=== PATIENT | female | born 1950 | race Caucasian/White ===

== ENCOUNTER 2022-06-21 09:02 | Outpatient (CLI) | payer MEDICARE, SELFPAY ==
[2022-06-21 10:06] LABS: Anion Gap 17 mmol/L (8-16); Blood Urea Nitrogen 29 mg/dL (7-17); Calcium 10.2 mg/dL (8.4-10.2); Carbon Dioxide 29 mmol/L (22-30); Chloride 95 mmol/L (98-107); Estimated Glomerular Filt Rate 37; Glucose 145 mg/dL (65-110); Partial Thromboplastin Time 25.3 SECONDS (22.3-36.8); Prothrombin Time 12.3 Seconds (11.1-14.7); Sodium 141 mmol/L (137-145)
== END 2022-06-21 09:03 | disposition home or self-care (01) ==
PROVIDERS: Anesthesiology; Visit Provider Urology
DX: Z01.812 Encounter for preprocedural laboratory examination (principal); N39.3 Stress incontinence (female) (male); E11.9 Type 2 diabetes mellitus without complications; N28.9 Disorder of kidney and ureter, unspecified; Z51.81 Encounter for therapeutic drug level monitoring; Z79.899 Other long term (current) drug therapy
CPT/HCPCS: 36415; 80048; 85610; 85730; 87086

== ENCOUNTER 2022-06-24 01:44 | Day surgery (SDC) | payer MEDICARE, SELFPAY ==
[2022-06-10 08:25] VITALS: BMI 37.5
--- NOTE | 2022-06-10 08:50 | PC.NURSE ---
PRE-OP INSTRUCTIONS, PLEASE READ CAREFULLY Report to the Outpatient Waiting Room, entrance under the green pavilion located off [facility], at time _0700_ on date _06/24/22_. OR Time: _0900_. - You and your visitor will be asked to self-screen and do not enter if you have any COVID symptoms. - Only one visitor and NO children visitors are allowed at this time. - The patient visitor is requested to leave or wait in car when not with patient due to restrictions. - A mask is required within the hospital. Patients may have clear liquids (water, carbonated beverages, clear teas, apple juice) until 3 hours prior to surgery (0600 AM) with a maximum of 20 ounces. - No food from midnight until time of surgery Take the following medications with a SIP of water the morning of surgery: _VENLAFAXINE, INHALER IF NEEDED_ Medications to discontinue per DR. GIMENEZ - _ASPIRIN 7 DAYS PRIOR TO SURGERY, Date to take last dose 06/16/22_ Medications to discontinue per ANESTHESIA - _OMEGA 3, VITAMIN D3, PROBIOTIC 3 DAYS PRIOR TO SURGERY, Date to take last dose 06/20/22_ Please no make-up, nail german, hairspray, perfume, deodorant, or body powder the day of surgery. No jewelry (including any body piercings) or valuables the day of surgery, leave them at home. Please take a shower or bath the night before, or the morning of, surgery with an antibacterial soap. Wear comfortable, loose fitting clothing. - Jewelry must be removed prior to entering the operating room. Rings and piercings that are not removed may be cut off. - The hospital will not accept responsibility for valuables. - Please leave all valuables, including medications, at home the day of surgery. If you are going home after surgery, a licensed delivery motorcycle driver must drive you home. - NO public transportation without another adult. - We recommend that an adult stay with you for 24 hours following discharge. - We also recommend that you do not drive, make important decision, drink alcoholic beverages, or take any drugs that were not prescribed by your health care provider for at least 24 hours after your discharge time. Follow any additional instructions given to you from your surgeon. If you or anyone in your household have experienced Covid symptoms in the past week, please notify your surgeon or the nurse liaison at the phone number below for possible testing. Telephone instructions given to ___PT and asked if any additional questions and then verbalized understanding. Patient advised to call surgeon office or pre surgery nurse liaison [phone] if any additional questions.
--- NOTE | 2022-06-18 17:23 | PM.IMHP ---
H&P: HPI History of Present Illness Date/Time: 06/18/22 17:23 Chief Complaint: TOOTIE Narrative: 71 yo with TOOTIE on urod Review of Systems Review of Systems: All systems reviewed & are unremarkable except as noted in HPI and below [facility] Social History Social History Smoking status: Never smoker Second hand tobacco smoke exposure: No Alcohol intake: current Alcohol use details: RARELY - MAYBE 6/YR Substance use: never Additional living arrangements comments: LIVES WITH SPOUSE Spiritual care concerns: No Meds Home Medications and Allergies Home Medications Medication Instructions Recorded Confirmed Type Probiotic 1 cap QAM 06/10/22 06/10/22 History albuterol 90 mcg/actuation aerosol 90 mcg inhalation PRN PRN Wheezing 06/10/22 06/10/22 History inhaler aspirin 81 mg tablet,delayed 81 mg PO HS 06/10/22 06/10/22 History release cetirizine 10 mg capsule (Zyrtec) 10 mg PO QAM PRN Congestion 06/10/22 06/10/22 History cholecalciferol (vitamin D3) 50 100 mcg PO DAILY 06/10/22 06/10/22 History mcg (2,000 unit) tablet dulaglutide 0.75 mg/0.5 mL 0.75 mg subcut WEEKLY 06/10/22 06/10/22 History subcutaneous pen injector (Trulicity) fenofibrate nanocrystallized 48 mg 48 mg PO QAM 06/10/22 06/10/22 History tablet insulin detemir U-100 100 unit/mL 36 unit subcut BID 06/10/22 06/10/22 History (3 mL) subcutaneous pen (Levemir FlexTouch U-100 Insulin) insulin lispro 100 unit/mL See Rx Instructions .Route .COMPLEX 06/10/22 06/10/22 History subcutaneous pen (Humalog KwikPen (U-100) Insulin) losartan 50 mg-hydrochlorothiazide 1 tablet QAM 06/10/22 06/10/22 History 12.5 mg tablet omega-3 fatty acids 4 cap PO HS 06/10/22 06/10/22 History rosuvastatin 10 mg tablet 10 mg HS 06/10/22 06/10/22 History tiotropium bromide 1.25 2 puff inhalation PRN PRN Wheezing 06/10/22 06/10/22 History mcg/actuation mist for inhalation (Spiriva Respimat) venlafaxine 150 mg 150 mg PO QAM 06/10/22 06/10/22 History capsule,extended release 24 hr Allergies Allergy/AdvReac Type Severity Reaction Status Date / Time tetracycline AdvReac Unknown-PT Verified 06/10/22 08:10 UNABLE TO RECALL CONTRAST MEDIA AdvReac Rash Uncoded 06/10/22 08:10 Exam Narrative: NAD normal breathing + urethral mobility Assessment and Plan Assessment and plan (1) TOOTIE (stress urinary incontinence, female): Code(s): N39.3 - Stress incontinence (female) (male) Status: Acute Assessment and Plan: urethral sling
--- NOTE | 2022-06-24 07:13 | WPDHPUPDATE1 ---
History and Physical Update Update Date/Time: 06/24/22 07:13 History and Physical has been reviewed, including an updated exam of the patient. There are NO changes in the patient's condition. Risks, benefits, and alternatives have been discussed and questions answered. Patient agrees to proceed with procedure.
[2022-06-24] MEDS: LACTATED RINGERS 1,000 ML 30 ML IV CONT (07:53)
[2022-06-24 07:58] LABS: Glucose Point of Care 180 mg/dl (65-105)
[2022-06-24 08:08] VITALS: BP 135/70; PULSE 77; RESP 18; TEMP 36.1; O2SAT 99
--- NOTE | 2022-06-24 08:24 | WPDANESEPPF ---
Anes - Initial Pre Proc Eval Procedure: Operation Date: 06/24/22 09:00 Proposed Procedures p Urethral Sling - Matthew Burden MD Date/Time: 06/24/22 08:24 Surgeon: Matthew Burden MD Pre Op Diagnosis: stress incontinence Patient Data Age: 71 Gender: F Height: 1.57 m Weight: 96.2 kg Last Vital Signs Temp 36.1 C L 06/24/22 08:08 Pulse 77 06/24/22 08:08 Resp 18 06/24/22 08:08 BP 135/70 06/24/22 08:08 Pulse Ox 99 06/24/22 08:08 O2 Del Method Room Air 06/24/22 08:08 Allergies Allergy/AdvReac Type Severity Reaction Status Date / Time Iodinated Contrast Media Allergy Unknown Rash Verified 06/24/22 08:26 betamethasone Allergy Palpitation Verified 06/24/22 08:07 s vasopressin Allergy Other Verified 06/24/22 08:07 tetracycline AdvReac Unknown-PT Verified 06/24/22 08:07 UNABLE TO RECALL BETA BLOCKERS Allergy Other Uncoded 06/24/22 08:07 Home Medications Medication Instructions Recorded Confirmed Type Probiotic 1 cap QAM 06/10/22 06/10/22 History albuterol 90 mcg/actuation aerosol 90 mcg inhalation PRN PRN Wheezing 06/10/22 06/10/22 History inhaler aspirin 81 mg tablet,delayed 81 mg PO HS 06/10/22 06/10/22 History release cetirizine 10 mg capsule (Zyrtec) 10 mg PO QAM PRN Congestion 06/10/22 06/10/22 History cholecalciferol (vitamin D3) 50 100 mcg PO DAILY 06/10/22 06/10/22 History mcg (2,000 unit) tablet dulaglutide 0.75 mg/0.5 mL 0.75 mg subcut WEEKLY 06/10/22 06/10/22 History subcutaneous pen injector (Trulicity) fenofibrate nanocrystallized 48 mg 48 mg PO QAM 06/10/22 06/10/22 History tablet insulin detemir U-100 100 unit/mL 36 unit subcut BID 06/10/22 06/10/22 History (3 mL) subcutaneous pen (Levemir FlexTouch U-100 Insulin) insulin lispro 100 unit/mL See Rx Instructions .Route .COMPLEX 06/10/22 06/10/22 History subcutaneous pen (Humalog KwikPen (U-100) Insulin) losartan 50 mg-hydrochlorothiazide 1 tablet QAM 06/10/22 06/10/22 History 12.5 mg tablet omega-3 fatty acids 4 cap PO HS 06/10/22 06/10/22 History rosuvastatin 10 mg tablet 10 mg HS 06/10/22 06/10/22 History venlafaxine 150 mg 150 mg PO QAM 06/10/22 06/10/22 History capsule,extended release 24 hr amoxicillin 875 mg-potassium 1 tablet PO BID 06/21/22 06/21/22 History clavulanate 125 mg tablet fluticasone fur. 200 mcg-umeclid 1 inh inhalation DAILY 06/21/22 06/21/22 History 62.5 mcg-vilant 25 mcg inhalat.powder (Trelegy Ellipta) Laboratory Tests 06/24/22 07:54 POC Capillary Glucose 180 mg/dl H mg/dl (65-105) Patient hx anesthesia problems: none Family hx anesthesia problems: none Results Review: All pre-operative results and documents have been reviewed as part of the pre-operative evaluation. [facility] Past Medical History Medical History Asthma Obesity JEFF (obstructive sleep apnea) Social History Social History Smoking status: Never smoker Second hand tobacco smoke exposure: No Alcohol intake: current Alcohol use details: RARELY - MAYBE 6/YR Substance use: never Living arrangements: with family Additional living arrangements comments: LIVES WITH SPOUSE Spiritual care concerns: No Anes - Eval Final PreProcedure Day of Procedure 06/24/22 08:24 Patient weight: obese Heart: regular rate and rhythm Lungs: clear to auscultation Airway: Mallampati scale class II Neurological: alert and oriented ASA classification: III Emergent: no Anesthetic plan: proceed Anesthesia type and monitoring: general GIVS and standard monitoring Results Review: All pre-operative results and documents have been reviewed as part of the pre-operative evaluation. Informed Consent: The patient's anesthetic plan and its attendant risks and benefits were discussed with the patient/family/POA. Questions were solicited a
[2022-06-24] MEDS: ceFAZolin 2 GM/D5W 50 ML 2 GM/50 ML BAG IVPB (09:09)
[2022-06-24] MEDS: BUPIVACAINE/EPINEPHRINE 0.25% 50 ML VIAL INFILTRATE (09:37)
[2022-06-24 09:45] VITALS: BP 98/54; PULSE 66; RESP 14; O2SAT 95
--- NOTE | 2022-06-24 09:51 | W.PM.PROC2 ---
Procedure Note - Detailed Date of Procedure 06/24/22 Pre-op Diagnosis stress incontinence Post-op Diagnosis Same Procedure Performed mid urethral sling cystoscopy Surgeon Matthew Burden MD Indications This is a female with confirm stress urinary incontinence. She desires surgical correction. She understands the risks of bleeding, infection, injury to the urinary tract, vaginal mesh extrusion, urinary tract mesh erosion, obstructive voiding requiring a secondary procedure, hip and leg pain, dyspareunia, inability to improve overactive bladder symptoms. She agrees to proceed. Description of Procedure She was correctly identified. Informed consent obtained. She was brought the operating room. She was given appropriate anesthesia. She was given appropriate perioperative antibiotics. A time-out performed. I marked out the site of the inner thigh incisions. I anesthetized the skin and made those incisions. I anesthetized the anterior vaginal wall over the mid urethra. I made a 1 cm incision. I dissected out laterally taking great care not to injure the refilled vaginal wall. I passed the helical trocars. First on the left. Then on the right. I did this from the thigh incision towards the vaginal incision. The sling was connected to the trocars and brought out through the thigh incision. I tensioned the sling appropriately. I cut and the plastic sheaths. I then closed the incision with 2 0 Vicryl. On cystoscopy there is no tumors or surgical artifact. There was no surgical artifact in the urethra. I cut the excess sling material. Close incisions with glue. She was awakened and transferred to the PACU in stable condition. Implants Urethral sling Estimated Blood Loss -10.0 Drains No Packing No Pathology None sent Complications No immediate complications Condition Stable Disposition PACU
[2022-06-24 09:53] LABS: Glucose Point of Care 146 mg/dl (65-105)
[2022-06-24 10:15] VITALS: BP 118/69; PULSE 62; RESP 16; O2SAT 98
== END 2022-06-24 10:45 | disposition home or self-care (01) ==
PROVIDERS: Visit Provider Urology
PROC: (CPT 57288; principal; 2022-06-24 09:00)
DX: N39.3 Stress incontinence (female) (male) (principal); Z79.82 Long term (current) use of aspirin; Z79.4 Long term (current) use of insulin; Z79.51 Long term (current) use of inhaled steroids; J45.909 Unspecified asthma, uncomplicated; G47.33 Obstructive sleep apnea (adult) (pediatric); E66.9 Obesity, unspecified; Z68.38 Body mass index [BMI] 38.0-38.9, adult
CPT/HCPCS: 57288; 36415; 80048; 82948; 85610; 85730; 87086; A9270; C1771; J0690; J2704; J3010; J7030; J7120